=== PATIENT | male | born 1990 ===

== ENCOUNTER 2022-06-10 11:07 | Outpatient (REF) | payer OTHER, SELFPAY ==
[2022-06-16 13:02] LABS: Vitamin D 25-OH, D2 <4 ng/mL; Vitamin D 25-OH, D3 27 ng/mL; Vitamin D 25-OH, Total 27 ng/mL (30-100)
== END 2022-06-10 11:08 | disposition home or self-care (01) ==
LOC: HO.LAB 11:07
PROVIDERS: Visit Provider Nurse Practitioner Family
DX: E55.9 Vitamin D deficiency, unspecified (principal); K21.9 Gastro-esophageal reflux disease without esophagitis
CPT/HCPCS: 36415; 82306; 99202

== ENCOUNTER 2023-01-03 08:49 | Outpatient (REF) | payer OTHER, SELFPAY | END 2023-01-03 08:50 | disposition home or self-care (01) | LOC: HO.HOSX 08:49 | PROVIDERS: Visit Provider Orthopaedic Surgery | DX: Z13.89 Encounter for screening for other disorder (principal) ==

== ENCOUNTER 2024-05-08 09:07 | Outpatient (REF) | payer OTHER, SELFPAY | END 2024-05-08 09:08 | disposition home or self-care (01) | LOC: HO.HOSX 09:07 | PROVIDERS: Visit Provider Physical Medicine & Rehabilitation | DX: M54.41 Lumbago with sciatica, right side (principal); M53.3 Sacrococcygeal disorders, not elsewhere classified | CPT/HCPCS: 99202 ==

== ENCOUNTER 2024-05-08 09:07 | Outpatient (AMB) | payer OTHER, SELFPAY ==
--- NOTE | 2024-05-08 09:12 | MHC.OFFVIS ---
Vital Signs 05/08/24 09:18 Height 5 ft 10 in Weight 225 lb BMI 32.3 Intake Visit Reasons: N/P lower back/sciatic rad. px down leg Intake Note: Kolby 33 yr old male presents today as a new patient for an evaluation of lower back/sciatic pain. Patient reports pain that is radiating down the lateral aspect leg with some numbness and tingling in his toes. States pain presented about a month ago and at times his pain worsens. 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 Patient has not tried P.T. Finds little relief with lidocaine patches and ibuprofen. Allergies No Known Allergies Allergy (Verified 05/08/24 09:19) Medication List - Last Reconciled 05/08/24 by Shu Estevez MD albuterol sulfate 90 mcg/actuation 0 mcg inhalation epinephrine IM famotidine 1 tab PO BID ibuprofen 600 mg PO BID PRN omeprazole 20 mg PO BID HPI Comments Details: Just started 1 month ago. His work is physical, for past 3 years. No specific injury. He admits that he did gain weight recently. He only gets back pain prior to this, just mild, rarely. Points right lateral leg, can go up, and buttocks. It radiates down to right leg. He reports numbness from thigh down to calf, and down to smaller toes. No weakness, foot drop, stumbling, no problem with stairs. No bladder/bowel issues. Treatment done so far: NSAIDs - Motrin prn PFSH Medical History (Updated 05/08/24 @ 10:08 by Shu Estevez MD) Acute back pain Sacroiliac joint dysfunction of right side Chronic back pain GERD (gastroesophageal reflux disease) Surgical History Surgical history unknown Family History Mother Systemic lupus erythematosus (SLE) in adult Father Asthma HTN (hypertension) Social History Household Members: Other Household Members Other:: living with siblings Alcohol intake: current Patient Tobacco Use Status: Current everyday Tobacco user Tobacco use type: Cigarette Substance Use Type: Marijuana Current occupational status: employed Current occupation: furniture store Review of Systems Const All systems reviewed & are unremarkable except as noted in HPI and below Physical Exam Vital Signs: BMI result Body Mass Index 32.3 Constitutional: Patient appears to be in no acute distress, well nourished and well developed. Patient was appropriately conversant and oriented. Good historian. MSK: No specific abnormalities found on inspection of the spine and all extremities. No pain with palpation over the lumbar area. No tenderness over paraspinals or quadratus lumborum. Tender over right SI joint. No tenderness on piriformis. Lumbar ROM was full. Bilateral hip, knee and ankle ROM WNL. No ligamentous laxity or crepitance. No increased effusion. Straight-leg raising test caused pulling sensation to the calf. FABERE test positive right. Gillet test is negative. Strength is 5/5 in all muscle groups tested. No increased tone noted. Neurological: Neurologic examination of the upper and lower extremities was nonfocal with intact sensation, muscle stretch reflexes and without focal motor deficits . Boykin?s negative bilaterally. Babinski was down going bilaterally. Clonus was negative. Gait is non-antalgic without loss of balance. Results Reviewed Results Reviewed: No past imaging Assessment & Plan Assessment & Plan (1) Sacroiliac joint dysfunction of right side: Code(s): M53.3 - Sacrococcygeal disorders, not elsewhere classified Category: Medical (2) Acute back pain: Code(s): M54.9 - Dorsalgia, unspecified Category: Medical Qualifiers: Back pain location: low back pain Back pain laterality: right Sciatica presence: with sciatica Sciatica laterality: sciatica of right side Qualified Code(s): M54.41 - Lumbago with sciatica, right side Plan Acute right-sided back pain. Symptoms and exam suggestive of right SI joint pain. No definitive signs of lumbar radiculopathy although that is still part of our differential diagnosis. Discussed with patient the difference between SI joint and lumbar radiculopathy. Getting lumbar x-rays today. Evaluate disc space narrowing L5-S1 if any. Discussed option between oral anti-inflammatory medication versus SI joint injection. We opted to try oral medication for now. We will start on short burst of oral prednisone, follow instructions. Discussed precautions and side effects. Start physical therapy. Referral placed. To work on SI joint symmetry and pelvic stability. Assessment and plan discussed with patient, and patient was agreeable. All questions were answered thoroughly. Follow up in 6 weeks. Shu Estevez MD, ZAYDA Board Certified, [place] [employer] and Rehabilitation (ABPMR) Board Certified, [place] [employer] Electrodiagnostic Medicine (ABEM) Orders: Orders PT Evaluation and Treatment Today M53.3 - Sacrococcygeal disorders, not elsewhere classified, M54.9 - Dorsalgia, unspecified XR lumbar spine 2-3V Today M53.3 - Sacrococcygeal disorders, not elsewhere classified, M54.9 - Dorsalgia, unspecified Medications: New prednisone see taper instructions; 40 mg Daily for three days, 30 mg daily for three days, 20 mg daily for three days, 10 mg daily for three days 5 mg PO DIRECTED 60 tabs 0RF Coding Level of Care Code New Pt Level 4 (84809) Diagnoses Sacroiliac joint dysfunction of right side M53.3 Acute right-sided low back pain with right-sided sciatica M54.41 Back pain location: low back pain Back pain laterality: right Sciatica presence: with sciatica Sciatica laterality: sciatica of right side
[2024-05-08 09:18] VITALS: BMI 32.3
== END 2024-05-08 10:06 | disposition home or self-care (01) ==
PROVIDERS: Visit Provider Physical Medicine & Rehabilitation
DX: M53.3 Sacrococcygeal disorders, not elsewhere classified (principal); M54.41 Lumbago with sciatica, right side
CPT/HCPCS: 99204

== ENCOUNTER 2024-06-26 09:10 | Outpatient (REF) | payer OTHER, SELFPAY ==
--- NOTE | ~2024-06-26 | XR_ITS ---
EXAMINATION: XR LUMBOSACRAL SPINE CLINICAL INFORMATION: Reason for Exam M54.9 - Dorsalgia, unspecified Assess L5-S1 disc space COMPARISON: None available. TECHNIQUE: Three views of the lumbosacral spine. FINDINGS: L5-S1: Mild degenerative changes manifested by endplate osteophytes. Remaining disc levels normal. Vertebral bodies normally aligned with normal height. Facets are unremarkable. Partially visualized pelvis including sacroiliac joints are normal. XR/XR lumbar spine 2-3V IMPRESSION: Mild spondylosis of the lumbosacral spine involving L5-S1 disc. Electronically signed by: Robb Nolan MD 07/20/2024 06:44 AM EDT
== END 2024-06-26 09:11 | disposition home or self-care (01) ==
LOC: HO.HOSX 09:10
PROVIDERS: Visit Provider Physical Medicine & Rehabilitation
DX: M53.3 Sacrococcygeal disorders, not elsewhere classified (principal); M54.41 Lumbago with sciatica, right side; M54.16 Radiculopathy, lumbar region; M51.26 Other intervertebral disc displacement, lumbar region; M79.18 Myalgia, other site
CPT/HCPCS: 72100; 99212

== ENCOUNTER 2024-06-26 09:10 | Outpatient (AMB) | payer OTHER, SELFPAY ==
--- NOTE | 2024-06-26 09:12 | A.OFFVIS_ITS ---
Intake Visit Reasons: O/V lower backpain s/p PT Intake Note: Kolby is a 34 year old male who presents to the office today for lower back pain. Patient reports that he discontinue the prednisone, as it was causing increased anxiety. He explains that his pain has improved sine he has been out of work. He does have sharp in the posterioir aspect of othe right knee and at the base of his glute. He is taking Motrin for his pain which is helpful. Allergies No Known Allergies Allergy (Verified 05/08/24 09:19) HPI Comments Details: Acute onset back pain, 1 month prior to 1st consultation. His work is physical, for past 3 years. No specific injury. He admits that he did gain weight recently. He only gets back pain prior to this, just mild, rarely. Points right lateral leg, can go up, and buttocks. It radiates down to right leg. He reports numbness from thigh down to calf, and down to smaller toes. No weakness, foot drop, stumbling, no problem with stairs. No bladder/bowel issues. No more tightness or electrical or shooting on RLE, especially with rest and being at home. Shooting pain to foot only when he does the hard physical activities or walking. 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 Does have pin point areas of pain on calf and buttocks. Treatment done so far: NSAIDs - Motrin prn Took prednisone taper, from 40mg down to 10mg but didn't tolerate further taper after due to anxiety. PT trial [facility] Medical History (Updated 06/26/24 @ 10:11 by Shu Estevez MD) Acute back pain Sacroiliac joint dysfunction of right side Chronic back pain GERD (gastroesophageal reflux disease) Surgical History Surgical history unknown Family History Mother Systemic lupus erythematosus (SLE) in adult Father Asthma HTN (hypertension) Social History Household Members: Other Household Members Other:: living with siblings Alcohol intake: current Patient Tobacco Use Status: Current everyday Tobacco user Tobacco use type: Cigarette Substance Use Type: Marijuana Current occupational status: employed Current occupation: furniture store Physical Exam Constitutional: Patient appears to be in no acute distress, well nourished and well developed. Patient was appropriately conversant and oriented. Good historian. MSK: No specific abnormalities found on inspection of the spine and all extremities. Tender over right SI joint. Tender on right piriformis. Indicated pain on right lateral hamstrings. Lumbar ROM was full. Bilateral hip, knee and ankle ROM WNL. No ligamentous laxity or crepitance. No increased effusion. Straight-leg raising test caused pulling sensation to the calf. FABERE test positive right. Strength is 5/5 in all muscle groups tested. No increased tone noted. Neurological: Neurologic examination of the upper and lower extremities was nonfocal with intact sensation, muscle stretch reflexes and without focal motor deficits . Boykin?s negative bilaterally. Babinski was down going bilaterally. Clonus was negative. Gait is non-antalgic without loss of balance. Results Reviewed Results Reviewed: Independently reviewed imaging/lumbar x-rays done today in the office: Decreased disc space loss L5-S1 with hyperechoic areas in disc space? Assessment & Plan Assessment & Plan (1) Acute back pain: Code(s): M54.9 - Dorsalgia, unspecified Category: Medical Qualifiers: Back pain location: low back pain Back pain laterality: right Sciatica presence: with sciatica Sciatica laterality: sciatica of right side Qualified Code(s): M54.41 - Lumbago with sciatica, right side (2) Right lumbar radiculitis: Code(s): M54.16 - Radiculopathy, lumbar region Category: Medical (3) Sacroiliac joint dysfunction of right side: Code(s): M53.3 - Sacrococcygeal disorders, not elsewhere classified Category: Medical (4) Myofascial pain: Code(s): M79.18 - Myalgia, other site Category: Medical Plan Although his pain is improved with rest and oral prednisone, I am still concerned for lumbar radiculitis. Lumbar x-ray shows decreased disc space L5- S1. Patient had undergone adequate conservative management without complete improvement of condition. It would be reasonable to obtain further imaging such as MRI. An MRI would help rule out any serious condition, guide treatment and assess prognosis for recovery. Specifically ruling out right S1 or L5 nerve compression from disc herniation. For now, continue stretching and NSAID as needed. Assessment and plan discussed with patient, and patient was agreeable. All questions were answered thoroughly. Follow up after MRI. Shu Estevez MD, ZAYDA Board Certified, [place] [employer] and [employer] (ABPMR) Board Certified, [place] [employer] (ABEM) Orders: Orders MR lumbar spine wo con Today M51.26 - Other intervertebral disc displacement, lumbar region, M54.16 - Radiculopathy, lumbar region Coding Level of Care Code Est Pt Level 4 (71762) Diagnoses Acute right-sided low back pain with right-sided sciatica M54.41 Back pain location: low back pain Back pain laterality: right Sciatica presence: with sciatica Sciatica laterality: sciatica of right side Right lumbar radiculitis M54.16 Sacroiliac joint dysfunction of right side M53.3 Myofascial pain M79.18
== END 2024-06-26 10:09 | disposition home or self-care (01) ==
PROVIDERS: Visit Provider Physical Medicine & Rehabilitation
DX: M54.41 Lumbago with sciatica, right side (principal); M54.16 Radiculopathy, lumbar region; M53.3 Sacrococcygeal disorders, not elsewhere classified; M79.18 Myalgia, other site
CPT/HCPCS: 99213

== ENCOUNTER 2024-07-26 16:38 | Outpatient (REF) | payer OTHER, SELFPAY ==
--- NOTE | ~2024-07-26 | MR_ITS ---
EXAMINATION: MR LUMBAR SPINE WITHOUT CONTRAST CLINICAL INFORMATION: Radiculopathy, lumbar region COMPARISON: None available. TECHNIQUE: MRI of the lumbar spine was obtained using routine sequences without contrast. FINDINGS: There are 5 nonrib-bearing lumbar-type vertebrae. There is Mild retrolisthesis at L5-S1. The vertebral body heights are preserved. Multilevel disc desiccation with moderate disc height loss at L5-S1. Reactive endplate changes at T11-12, L4-5, and L5-S1. Multilevel Schmorl's nodes. The visualized spinal cord is normal in caliber. No abnormal cord signal. The conus medullaris terminates at T12. T12-L1: No significant spinal canal or neural foraminal narrowing. L1-2: No significant spinal canal or neural foraminal narrowing. L2-3: No significant spinal canal or neural foraminal narrowing. There is a 5 mm extracanalicular synovial cyst abutting the right facet joint. L3-4: Bilateral facet arthrosis. No significant spinal canal or neural foraminal narrowing. L4-5: Shallow disc bulge and bilateral facet arthrosis. No significant spinal canal or neural foraminal narrowing. L5-S1: Right paracentral/subarticular disc extrusion. There is mass effect on the right cauda equina nerve roots at this level. Superimposed epidural lipomatosis results in moderate effacement of the thecal sac. Severe stenosis of the right lateral recess and mild right neural foraminal narrowing with the disc abutting the right exiting L5 nerve roots. There is also mild left neural foraminal narrowing. The paravertebral soft tissues are unremarkable. MR/MR lumbar spine wo con IMPRESSION: -At L5-S1 there is a right paracentral/subarticular disc extrusion which exerts mass effect on the right cauda equina nerve roots at this level. Superimposed epidural lipomatosis results in moderate effacement of the thecal sac and severe stenosis of the right lateral recess. Disc material abuts the right exiting L5 nerve roots. -At L2-L3 there is a 5 mm extracanalicular synovial cyst abutting the right facet joint. -Multilevel facet arthrosis from L3-L4 to L5-S1. There is also multilevel reactive endplate changes with associated Schmorl's nodes. Electronically signed by: Sunil Martins MD 08/14/2024 01:30 PM EDT RP
== END 2024-07-26 16:39 | disposition home or self-care (01) ==
LOC: HO.MRI 16:38
PROVIDERS: Visit Provider Physical Medicine & Rehabilitation
DX: M54.16 Radiculopathy, lumbar region (principal); M51.26 Other intervertebral disc displacement, lumbar region
CPT/HCPCS: 72148

== ENCOUNTER 2024-08-29 12:01 | Outpatient (AMB) | payer OTHER, SELFPAY ==
--- NOTE | 2024-08-29 12:02 | A.OFFVIS_ITS ---
Intake Visit Reasons: Ov- MRI review lower back Intake Note: Kolby is a 34 year old male who presents today for a MRI review of his lower back. Allergies No Known Allergies Allergy (Verified 05/08/24 09:19) HPI Comments Details: Acute onset back pain, 1 month prior to 1st consultation. His work is physical, for past 3 years. No specific injury. He admits that he did gain weight recently. He only gets back pain prior to this, just mild, rarely. Points right lateral leg, can go up, and buttocks. It radiates down to right leg. He reports numbness from thigh down to calf, and down to smaller toes. No w eakness, foot drop, stumbling, no problem with stairs. No bladder/bowel issues. On succeeding visits, no more tightness or electrical or shooting on RLE, especially with rest and being at home. Shooting pain to foot only when he does the hard physical activities or walking. 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 Does have pin point areas of pain on calf and buttocks. Treatment done so far: NSAIDs - Motrin prn Took prednisone taper, from 40mg down to 10mg but didn't tolerate further taper after due to anxiety. PT trial Lumbar MRI showed large disc herniation right L5-S1. Images reviewed with patient. Official report raise suspicion for cauda equina compression on the right side. Patient denies any bladder or bowel incontinence. There is no weakness. No footdrop. He denies any pain at all. He has been doing much better with chiropractic treatments twice a week and being off work for the last 6 weeks. He is going back to work. [facility] Medical History (Updated 08/29/24 @ 12:24 by Shu Estevez MD) Acute back pain Sacroiliac joint dysfunction of right side Chronic back pain GERD (gastroesophageal reflux disease) Surgical History Surgical history unknown Family History Mother Systemic lupus erythematosus (SLE) in adult Father Asthma HTN (hypertension) Social History Household Members: Other Household Members Other:: living with siblings Alcohol intake: current Patient Tobacco Use Status: Current everyday Tobacco user Tobacco use type: Cigarette Substance Use Type: Marijuana Current occupational status: employed Current occupation: furniture store Physical Exam Constitutional: Patient appears to be in no acute distress, well nourished and well developed. Patient was appropriately conversant and oriented. Good historian. MSK: No specific abnormalities found on inspection of the spine and all extremities. Lumbar ROM was full. Bilateral hip, knee and ankle ROM WNL. No ligamentous laxity or crepitance. No increased effusion. Slump sit negative. Strength is 5/5 in all muscle groups tested. No increased tone noted. Neurological: Neurologic examination of the upper and lower extremities was nonfocal with intact sensation, muscle stretch reflexes and without focal motor deficits . Boykin?s negative bilaterally. Babinski was down going bilaterally. Clonus was negative. Gait is non-antalgic without loss of balance. Can stand on toes and heels. Results Reviewed Results Reviewed: Ordering Physician: Shu Sargent Date of Service: 07/26/24 Procedure(s): MR lumbar spine con Accession Number(s): [id number] cc: Shu Sargent~ EXAMINATION: MR LUMBAR SPINE WITHOUT CONTRAST CLINICAL INFORMATION: Radiculopathy, lumbar region COMPARISON: None available. TECHNIQUE: MRI of the lumbar spine was obtained using routine sequences without contrast. FINDINGS: There are 5 nonrib-bearing lumbar-type vertebrae. There is Mild retrolisthesis at L5-S1. The vertebral body heights are preserved. Multilevel disc desiccation with moderate disc height loss at L5-S1. Reactive endplate changes at T11-12, L4-5, and L5-S1. Multilevel Schmorl's nodes. The visualized spinal cord is normal in caliber. No abnormal cord signal. The conus medullaris terminates at T12. T12-L1: No significant spinal canal or neural foraminal narrowing. L1-2: No significant spinal canal or neural foraminal narrowing. L2-3: No significant spinal canal or neural foraminal narrowing. There is a 5 mm extracanalicular synovial cyst abutting the right facet joint. L3-4: Bilateral facet arthrosis. No significant spinal canal or neural foraminal narrowing. L4-5: Shallow disc bulge and bilateral facet arthrosis. No significant spinal canal or neural foraminal narrowing. L5-S1: Right paracentral/subarticular disc extrusion. There is mass effect on the right cauda equina nerve roots at this level. Superimposed epidural lipomatosis results in moderate effacement of the thecal sac. Severe stenosis of the right lateral recess and mild right neural foraminal narrowing with the disc abutting the right exiting L5 nerve roots. There is also mild left neural foraminal narrowing. The paravertebral soft tissues are unremarkable. MR/MR lumbar spine wo con IMPRESSION: -At L5-S1 there is a right paracentral/subarticular disc extrusion which exerts mass effect on the right cauda equina nerve roots at this level. Superimposed epidural lipomatosis results in moderate effacement of the thecal sac and severe stenosis of the right lateral recess. Disc material abuts the right exiting L5 nerve roots. -At L2-L3 there is a 5 mm extracanalicular synovial cyst abutting the right facet joint. -Multilevel facet arthrosis from L3-L4 to L5-S1. There is also multilevel reactive endplate changes with associated Schmorl's nodes. Electronically signed by: Sunil Martins MD 08/14/2024 01:30 PM EDT RP Assessment & Plan Assessment & Plan (1) Right lumbar radiculitis: Code(s): M54.16 - Radiculopathy, lumbar region Category: Medical (2) Lumbar disc herniation: Code(s): M51.26 - Other intervertebral disc displacement, lumbar region Category: Medical Plan MRI shows large disc herniation consistent with his previous symptoms. He denies anymore pain now. No signs of neurologic deficits, no red flags. He does not like injections. Because there is no pain, we are deferring any referral for epidural injections. I do want him to meet with our neuro spine department to see what his surgical options could be in the future. Discussed safe exercises to do at home. He is going back to work in 2 weeks. Precautions regarding lifting discussed. Taken wear a lumbar support brace at work. Assessment and plan discussed with patient, and patient was agreeable. All questions were answered thoroughly. Shu Estevez MD, ZAYDA Board Certified, [place] [employer] and [employer] (ABPMR) Board Certified, [place] [employer] Electro[employer] (ABEM) Orders: Referrals Neurosurgery Referral M51.26 - Other intervertebral disc displacement, lumbar region, M54.16 - Radiculopathy, lumbar region Medications: New back brace Lumbar support brace, with or without shoulder support 1 ea 0RF Coding Level of Care Code Est Pt Level 4 (32010) Diagnoses Right lumbar radiculitis M54.16 Lumbar disc herniation M51.26
== END 2024-08-29 15:04 | disposition home or self-care (01) ==
PROVIDERS: Visit Provider Physical Medicine & Rehabilitation
DX: M54.16 Radiculopathy, lumbar region (principal); M51.26 Other intervertebral disc displacement, lumbar region
CPT/HCPCS: 99213

== ENCOUNTER → 2024-08-29 12:01 | Outpatient (BNVA) | payer OTHER, SELFPAY | PROVIDERS: Visit Provider Physical Medicine & Rehabilitation | DX: M54.16 Radiculopathy, lumbar region (principal); M51.26 Other intervertebral disc displacement, lumbar region | CPT/HCPCS: 99212 ==